=== PATIENT | male | born 1990 | race Caucasian/White ===

== ENCOUNTER 2024-06-03 06:25 | Day surgery (SDC) | payer OTHER, SELFPAY ==
[2024-06-03] VITALS (7 sets, daily range): BP systolic 120–139; BP diastolic 70–82; PULSE 66–76; RESP 16–18; TEMP 36.2–36.6; O2SAT 92–100; BMI 38.1
--- NOTE | 2024-06-03 | IMM_PTH ---
PATIENT: AYAH VILLAGOMEZ LOC: EN U#:[id number] AGE/SX: 33/M ROOM: RE06/03/[address]: Dr. Sara Shabazz MD : 1990 BED: DIS: 06/03/2024 SPEC #: [id number] RECD: 06/03/24 11:53 STATUS: TWILA REQ #: [id number] AVEL: 06/03/24 00:[address]: Sara Shabazz DEPT: IMMUNOHISTOCHEMISTRY RECD BY: Bernabe Cowart ENTERED: 06/03/24 11:54 SP TYPE: IMMUNO OTHR DR: Erin Wilkins PA-C Tissues: A - Gastric mucous membrane Procedures: H Pylori (initial) PHYSICIAN & INSTITUTION [place] [address] SPECIMEN INFORMATION: Tissue Source: A- Prepylorus biopsy Clinical Info: Phlegm in throat Specimen Number: [id number] CPT code: 27181 METHODOLOGY: Deparaffinized sections of prefer/formalin-fixed tissue or PAP/DQ stained slides are incubated with monoclonal/polyclonal antibodies/oligonucleotide probes. Localization is made via biotin free immunoperoxidase method. Appropriate controls are performed and reacted as expected. Results on target cell population are indicated in the following table: RESULTS: ANTIBODY / CLONE RESULT Block A H Pylori (polyclonal) negative These tests were developed and their performance characteristics determined by [facility]. They may not have been cleared or approved by the U.S. Food and Drug Administration. The FDA has determined that such clearance or approval is not necessary. The above immunohistochemical/dualISH markers are ordered and reviewed by the Pathologist. INTERPRETATION: A. Prepylorus biopsy: Negative for Helicobacter pylori organisms. AM 06/04/2024
--- NOTE | 2024-06-03 07:00 | PRE.ANES_ITS ---
ASA Classification* ASA Classification ASA Classification: 3 Assessment & Plan Anesthesia* Anesthesia Assessment Anesthesia Assessment: Discussed sedation and/or anesthesia options, risks, benefits, and alternatives with patient/parents/legal guardian/POA. Questions invited. The patient/parents/legal guardian/POA seems to understand and agrees to proceed with anesthesia plan. Reviewed the physical assessment, medical history, allergy history and patient home medications list prior to surgery/procedure/anesthetic and documented any changes. Performed airway and anesthesia risk assessments. Anesthesia Type Anesthesia Type: MAC Anesthesia Focused Assessment* Temperature: 97.2 F Pulse Rate: 73 Blood Pressure: 139/77 Respiratory Rate: 18 Pulse Ox: 100 Airway Assessment Mouth opens: >3 cm Mallampati Score: II Focused Labs Anesthesia Preop lab: CBC CHEMISTRY COAG Pre-Assessment Diagnosis/Proposed Procedure Planned Operative Procedure(s): egd Anesthesia History Anesthesia History - informatics scientist: Anesthesia History - informatics scientist Hx Hospitalization No 05/28/24 08:20 Any Problems With Anesthesia No 05/28/24 08:20 Cholinesterase deficiency No 05/28/24 08:20 You/Your Family Experience No 05/28/24 08:20 fever (hyperthermia) with Relationship Recent Exposure to Contagious No 06/03/24 06:47 Disease Does patient have nerve No 05/28/24 08:20 stimulator Patient instructed to have device shut off --Does patient have Pacemaker No 06/03/24 06:47 or ICD? When Was Last Pacemaker Check QUESTION #4 FULL TEXT: You/Your Family Experience fever (hyperthermia) with Anesthesia Last Oral Intake Last Oral intake: Last Oral Intake NPO since 00:00 06/03/24 06:47 Meds taken in AM with sips of No 06/03/24 06:47 water? Meds patient instructed to take am of surgery PONV PONV - informatics scientist: PONV - informatics scientist Female No 05/28/24 08:20 HX of Motion Sickness No 05/28/24 08:20 HX of N/V After Surgery No 05/28/24 08:20 Non-Smoker Yes 05/28/24 08:20 Duration of Surgery greater No 05/28/24 08:20 than 60 minutes Number of Risk Factors 1 05/28/24 08:20 PONV Score Low Risk 05/28/24 08:20 Height & Weight Height & Weight: Anesthesia: Height & Weight Height 6 ft 3 in 06/03/24 06:47 Weight: 138.346 kg 06/03/24 06:47 Body Mass Index (BMI) 38.1 06/03/24 06:47 Respiratory Assessment Respiratory Assessment - informatics scientist: Respiratory Tract Infection Hx - informatics scientist Hx Respiratory Tract Infection No 05/28/24 08:20 STOP Sleep Apnea STOP Sleep Apnea - informatics scientist: STOP Sleep Apnea - informatics scientist Hx Hypertension No 05/28/24 08:20 Hx Sleep Apnea No 05/28/24 08:20 CPAP BIPAP Do you snore loudly (louder No 05/28/24 08:20 than talking or can be heard Do you often feel tired/ No 05/28/24 08:20 fatigued/ sleepy during daytime? Has anyone observed you stop No 05/28/24 08:20 breathing during sleep? STOP Results Negative 05/28/24 08:20 QUESTION #5 FULL TEXT : Do you snore loudly (louder than talking or can be heard through closed doors)? Tobacco Use History Tobacco Use History - informatics scientist: Tobacco Use History - informatics scientist Tobacco Use Smoking Status Never smoker 05/28/24 08:20 Hx Tobacco Use No 05/28/24 08:20 Years Smoking Packs Smoked per Day Smoking Cessation Date was within the last 15 years Hx Smoking Cessation Date Hx Smoking Cessation Counseling Hematologic Medial History Hematologic Hx - informatics scientist: Hematologic Medical Hx - engineering leader Hx of Blood Transfusion No 05/28/24 08:20 Hx of Transfusion in last 3 No 05/28/24 08:20 Months Date of Last Transfusion (if within last 3 months) Ever experience any problems No 05/28/24 08:20 with transfusion(s)? Specify any problems Hx of Preganancy in last 3 N/A 05/28/24 08:20 Months Nurse Filling Out Transfusion NBUCHER 05/28/24 08:20 & Questions: Date: 05/28/24 05/28/24 08:20 Time: 08:22 05/28/24 08:20 Patient unable to answer at this time (ie. confused, unrespo /Reproduction History /Reproductive History - informatics scientist: /Reproductive Hx- informatics scientist Hx Now No 05/28/24 08:20 Gestational Age (in weeks): EDC: Hx Hx Para Hx Section SAB No 05/28/24 08:20 [facility] Medical History PTSD (post-traumatic stress disorder) Anxiety Gastric reflux Non-smoker History of stress test Insomnia Obesity Depression HTN (hypertension) Home Medications ?Medication ?Instructions ?Recorded ?Last Taken ?Type ascorbic acid (vitamin C) 500 mg 500 mg PO DAILY 11/29/23 06/02/24 History capsule bupropion HCl 100 mg tablet 100 mg PO BID 11/29/23 06/02/24 History cholecalciferol (vitamin D3) 50 50 mcg PO DAILY 11/29/23 06/02/24 History mcg (2,000 unit) capsule escitalopram oxalate 5 mg tablet 5 mg PO DAILY 11/29/23 06/02/24 History loratadine 10 mg tablet 10 mg PO DAILY 11/29/23 06/02/24 History magnesium oxide 400 mg PO DAILY 11/29/23 Unknown History mecobalamin (vitamin B12) 5,000 5,000 mcg PO DAILY 11/29/23 06/02/24 History mcg chewable tablet melatonin 5 mg capsule 30 mg PO DAILY 11/29/23 06/02/24 History multivitamin 1 tab PO DAILY 11/29/23 06/02/24 History phentermine 37.5 mg tablet 37.5 mg PO DAILY 11/29/23 05/27/24 History tizanidine 4 mg capsule 4 mg PO QHS PRN muscle spasticity 11/29/23 Unknown History zinc gluconate 50 mg tablet 50 mg PO DAILY 11/29/23 06/02/24 History diethylpropion 25 mg tablet 25 mg PO QPM 05/28/24 06/02/24 History famotidine 40 mg tablet 40 mg PO QHS 05/28/24 06/02/24 History omeprazole 40 mg capsule,delayed 40 mg PO BID 05/28/24 06/02/24 History release trazodone 100 mg tablet 100 mg PO QHS 05/28/24 06/02/24 History Allergy/AdvReac Type Severity Reaction Status Date / Time No Known Allergies Allergy Verified 05/28/24 08:14 Family History Father CAD (coronary artery disease) Hypertension Brother Asthma Hypertension Grandfather Cancer Grandmother Diabetes Cancer Surgical History S/P myringotomy with insertion of tube S/P tonsillectomy and adenoidectomy Social History Smoking Status: Never smoker alcohol intake: current Review of Systems (Anesthesia) ROS Narrative System reviewed and no additional complaints, except as documented.
--- NOTE | 2024-06-03 07:13 | H&P.OPEN ---
HPI - General General Date of Service: 06/03/24 HPI Narrative AYAH VILLAGOMEZ, is a 33 M who presents for an EGD to due to coughing up phlegm for about a year. Patient did go back and see ENT and they did not find anything when they did a CAT scan. Did recommend allergy testing however patient has had allergy testing previously. Patient does take generic Claritin daily was on Flonase for short bit did not think that really helped. ENT also put him on 40 mg in the morning of omeprazole and then Pepcid 40 mg at night he has been on that for about 2 months denies any changes. Still states increased coughing especially in the morning. Patient denies any abdominal pain or obvious reflux symptoms. office visit 11/29/23 [facility] HPI: 33-year-old male presents due to coughing up phlegm for nearly about a year presents for a possible EGD. 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 Patient does admit that in the last month he feels like he has more facial/sinus pressure in the morning. That does get better throughout the day. Patient states in the morning mostly he will be coughing up quite a bit of green/yellow phlegm. Patient denies any abdominal pain he states he was tried on omeprazole 40 mg p.o. daily for 2 months denies any change states he was also placed on Spiriva by his PCP for 1 month denies any change. Patient denies any chronic nausea or vomiting. Patient states he will occasionally has burning up his esophagus maybe once a month or last he takes Tums to resolve that. Patient does have a history of allergy shots in the past. Patient did try taking some Claritin which she used to take denies any changes with that. [facility] Medical History PTSD (post-traumatic stress disorder) Anxiety Gastric reflux Non-smoker History of stress test Insomnia Obesity Depression HTN (hypertension) Home Medications ?Medication ?Instructions ?Recorded ?Last Taken ?Type ascorbic acid (vitamin C) 500 mg 500 mg PO DAILY 11/29/23 06/02/24 History capsule bupropion HCl 100 mg tablet 100 mg PO BID 11/29/23 06/02/24 History cholecalciferol (vitamin D3) 50 50 mcg PO DAILY 11/29/23 06/02/24 History mcg (2,000 unit) capsule escitalopram oxalate 5 mg tablet 5 mg PO DAILY 11/29/23 06/02/24 History loratadine 10 mg tablet 10 mg PO DAILY 11/29/23 06/02/24 History magnesium oxide 400 mg PO DAILY 11/29/23 Unknown History mecobalamin (vitamin B12) 5,000 5,000 mcg PO DAILY 11/29/23 06/02/24 History mcg chewable tablet melatonin 5 mg capsule 30 mg PO DAILY 11/29/23 06/02/24 History multivitamin 1 tab PO DAILY 11/29/23 06/02/24 History phentermine 37.5 mg tablet 37.5 mg PO DAILY 11/29/23 05/27/24 History tizanidine 4 mg capsule 4 mg PO QHS PRN muscle spasticity 11/29/23 Unknown History zinc gluconate 50 mg tablet 50 mg PO DAILY 11/29/23 06/02/24 History diethylpropion 25 mg tablet 25 mg PO QPM 05/28/24 06/02/24 History famotidine 40 mg tablet 40 mg PO QHS 05/28/24 06/02/24 History omeprazole 40 mg capsule,delayed 40 mg PO BID 05/28/24 06/02/24 History release trazodone 100 mg tablet 100 mg PO QHS 05/28/24 06/02/24 History Allergy/AdvReac Type Severity Reaction Status Date / Time No Known Allergies Allergy Verified 05/28/24 08:14 Family History Father CAD (coronary artery disease) Hypertension Brother Asthma Hypertension Grandfather Cancer Grandmother Diabetes Cancer Surgical History S/P myringotomy with insertion of tube S/P tonsillectomy and adenoidectomy Social History Smoking Status: Never smoker alcohol intake: current Past Medical/Surgical History Planned Operation Planned Operative Procedure(s): egd Previous Hospitalizations/Surgeries HX Hospitalizations: No Any Problems With Anesthesia: No You/Your Family Experience Fever (Hyperthermia) With Anes: No Cholinesterase deficiency: No Cardiovascular Hx Hypertension: No Respiratory Hx Sleep Apnea: No Hx Respiratory Tract Infection/Cold (presently): No Do You Snore Loudly (louder than talking or can be heard): No Do You Often Feel Tired/ Fatigued/ Sleepy Dring Daytime?: No Has Anyone Observed You Stop Breathing During Sleep?: No Result (for STOP score): Negative Smoking Status: Never smoker Neurological Does patient have nerve stimulator: No Reproduction : No Miscellaneous Recent Exposure to Contagious Disease: No Allergies No Known Allergies Allergy (Verified 05/28/24 08:14) Discharge Is Pt Admitted From a Correction, or a Fdc: No After D/C, Where Do you Plan to Go: Return Home Vital Signs Vital Signs Vital Signs: 06/03/24 06:47 06/03/24 06:47 06/03/24 07:00 Temperature 97.2 F L 97.2 F L Temperature Source Oral Pulse Rate 73 73 Respiratory Rate 18 18 Respiratory Pattern Normal Blood Pressure 139/77 H 139/77 H Blood Pressure Mean 97 Blood Pressure Source Monitor Blood Pressure Position Semi-Fowlers Blood Pressure Location Right Arm Pulse Ox 100 100 Oxygen Delivery Method Room Air Weight Weight: 305 lb Body Mass Index (BMI) 38.1 Physical Exam Const alert, oriented x3 and no apparent distress HEENT normocephalic and head/scalp atraumatic Resp normal respiratory effort Cardio regular rate GI soft to palpation and non-tender; Negative for non-distended Palpation: Negative for guarding Extremity no clubbing, cyanosis or edema Skin no rashes or lesions noted Neuro CN's II-XII intact bilaterally Psych mental status grossly normal Assessment & Plan Assessment/Plan (1) Phlegm in throat: (2) Cough present for greater than 3 weeks: PLAN: Plan Workup so far with ENT have been negative did recommend allergy testing with patient states he had previously which was negative as well. Surgery Risks - Colonoscopy I discussed with the patient the risks of the procedure: Yes Risks Include but are not Limited To: Plan for an EGD Risks include but are not limited to: Bleeding, perforation requiring further surgery.
--- NOTE | 2024-06-03 07:30 | EGD_PTH ---
PATIENT: AYAH VILLAGOMEZ LOC: EN U#:[id number] AGE/SX: 33/M ROOM: RE06/03/[address]: Dr. Sara Shabazz MD : 1990 BED: DIS: 06/03/2024 SPEC #: [id number] RECD: 06/03/24 11:08 STATUS: TWILA ALEJANDRO #: [id number] AVEL: 06/03/24 07:[address]: Sara Shabazz DEPT: SURGICAL PATHOLOGY RECD BY: Juan Antonio Alegre ENTERED: 06/03/24 11:45 SP TYPE: EGD BIOPSY OT DR: Erin Wilkins PA-C Tissues: A - Gastric mucous membrane B - Esophagus, NOS Procedures: Surgery Specimen Level IV HEADER OPERATION: EGD with biopsy PRE-OP DIAGNOSIS: Phlegm in throat TISSUE SUBMITTED: A- Prepylorus biopsy, B- Random esophagus biopsy MICROSCOPIC DIAGNOSIS A. Prepyloric region, biopsy: Chronic gastritis with focal active gastritis. See comment. B. Esophagus, random biopsy: Fragments of benign squamous mucosa. No evidence of inflammation. AM. 06/04/2024 COMMENT A. The results of immunohistochemistry for Helicobacter pylori will be reported separately ([id number]). MICROSCOPIC DESCRIPTION Slides are reviewed. GROSS DESCRIPTION A. Received in fixative is one container labeled with the patient's name and designated Prepylorus biopsy. The specimen consists of one irregular fragment of light weeks soft tissue that measures 0.2 x 0.2 x 0.1 cm. The specimen is totally submitted in one cassette. B. Received in fixative is one container labeled with the patient's name and designated Random esophagus biopsy. The specimen consists of one irregular fragment of light weeks soft tissue that measures 0.3 x 0.2 x 0.1 cm. The specimen is totally submitted in one cassette. 06/03/2024 TC:2 CPT:14059u8
--- NOTE | 2024-06-03 07:43 | OP.CCLET_ITS ---
06/03/2024 Erin Wilkins Pa-c Re : Upper GI endoscopy procedure for Wero Wilkins This procedure was performed on Monday, June 03, 2024. My impressions and recommendations are as follows: Impressions : - Z-line regular, 42 cm from the incisors. - Erosive gastropathy with no stigmata of recent bleeding. Biopsied. - Normal examined duodenum. - Biopsies were taken with a cold forceps for histology in the middle third of the esophagus. Recommendations : - Await pathology results. - Discharge patient to home. - Resume previous diet. - Use sucralfate tablets 1 gram PO QID for 1 month. - Continue present medications. My findings are described in the full procedure note, which is enclosed. If I can be of further assistance, please feel free to contact me at Doctor phone number(s): , Work: . Sincerely, MD Sara Robertson MD 06/03/2024 7:42:14 AM This report has been signed electronically.
--- NOTE | 2024-06-03 07:43 | OP.EGD_ITS ---
Patient Name: Wero Browning Procedure Date: 06/03/2024 7:23 AM Date of : 1990 Age: 33 Procedure: Upper GI endoscopy Indications: Chronic cough Providers: Sara Shabazz MD Medicines: Monitored Anesthesia Care Patient Profile: This is a 33 year old male. Complications: No immediate complications. Procedure: Pre-Anesthesia Assessment: - Prior to the procedure, a History and Physical was performed, and patient medications and allergies were reviewed. The patient's tolerance of previous anesthesia was also reviewed. The risks and benefits of the procedure and the sedation options and risks were discussed with the patient. All questions were answered, and informed consent was obtained. Prior Anticoagulants: The patient has taken no anticoagulant or antiplatelet agents. ASA Grade Assessment: Per anesthesia. After reviewing the risks and benefits, the patient was deemed in satisfactory condition to undergo the procedure. After obtaining informed consent, the endoscope was passed under direct vision. Throughout the procedure, the patient's blood pressure, pulse, and oxygen saturations were monitored continuously. The gastroscope was introduced through the mouth, and advanced to the second part of duodenum. The upper GI endoscopy was accomplished without difficulty. The patient tolerated the procedure well. Scope In: 7:32:00 AM Scope Out: 7:36:24 AM Total Procedure Duration Time 0 hours 4 minutes 24 seconds Findings: The Z-line was regular and was found 42 cm from the incisors. Biopsies were taken with a cold forceps in the middle third of the esophagus for histology. A few localized less than 5 mm erosions with no stigmata of recent bleeding were found in the prepyloric region of the stomach. Biopsies were taken with a cold forceps for histology. Biopsies were taken with a cold forceps for Helicobacter pylori cultures. The cardia and gastric fundus were normal on retroflexion. The examined duodenum was normal. Impression: - Z-line regular, 42 cm from the incisors. - Erosive gastropathy with no stigmata of recent bleeding. Biopsied. - Normal examined duodenum. - Biopsies were taken with a cold forceps for histology in the middle third of the esophagus. Recommendation: - Await pathology results. - Discharge patient to home. - Resume previous diet. - Use sucralfate tablets 1 gram PO QID for 1 month. - Continue present medications. Procedure Code(s): --- Professional --- 38330, PT, Esophagogastroduodenoscopy, flexible, transoral; with biopsy, single or multiple Diagnosis Code(s): --- Professional --- K31.89, Other diseases of stomach and duodenum R05.3, Chronic cough CPT copyright 2021 [employer]. All rights reserved. The codes documented in this report are preliminary and upon measurement operator review may be revised to meet current compliance requirements. MD Sara Robertson MD 06/03/2024 7:42:14 AM This report has been signed electronically. Number of Addenda: 0 Note Initiated On: 06/03/2024 7:23 AM
--- NOTE | 2024-06-03 07:44 | PCM.POST.ANE ---
Anesthesia: Postop Eval I Current Vital Signs Temperature: 97.7 F Pulse Rate: 67 Blood Pressure: 121/71 Respiratory Rate: 16 Pulse Ox: 93 Oxygen Delivery Method: Room Air Assessment Airway patent: Yes Spontaneous unlabored respirations: Yes Mental status: Asleep nausea: No Vomiting: No Anesthesia Complication: No Fluid Hydration Crystalloid volume administer (ml): 15 Total IV fluid infused: 15 Progress Note Anesthesia document: Postop Eval 1 completed: Yes
--- NOTE | 2024-06-03 11:47 | PCM.POSTANE2 ---
Anesthesia Postop Eval I Sum Postop Eval Completion status Anesthesia document: Postop Eval 1 completed: Yes Anesthesia Postop Eval I Summary Anesthesia Postop Eval I Summary: Anesthesia Postop Eval I: Assessment Summary Airway patent Yes 06/03/24 07:45 [email or web address] Spontaneous unlabored Yes 06/03/24 07:45 [email or web address] respirations Mental status Asleep 06/03/24 07:45 [email or web address] nausea No 06/03/24 07:45 [email or web address] Vomiting No 06/03/24 07:45 [email or web address] Anesthesia Postop Eval I: Fluid Summary Crystalloid volume administer 15 06/03/24 07:45 [email or web address] (ml) Colloids volume administered ( ml) Blood Product volume administered (ml) Total IV fluid infused 15 06/03/24 07:45 [email or web address] Anesthesia Postop Eval I: Summary Notes Anesthesia Complication No 06/03/24 07:45 [email or web address] Anesthesia Complication Comment: Post-operative progress note Anesthesia: Postop Eval II Evaluation Mental status: Awake Pain Level: 0 nausea: No Vomiting: No
== END 2024-06-03 08:25 | disposition home or self-care (01) ==
LOC: EN 06:29 → AC 06:47
PROVIDERS: PCP Physician Assistant; Referring Provider Physician Assistant; Visit Provider Surgery
PROC: 0DJ08ZZ Inspection of Upper Intestinal Tract, Via Natural or Artificial Opening Endoscopic (ICD-10-PCS; CPT 43235; principal; 2024-06-03 07:25)
DX: R05.3 Chronic cough (principal); I10 Essential (primary) hypertension; G47.00 Insomnia, unspecified; K21.9 Gastro-esophageal reflux disease without esophagitis; K31.89 Other diseases of stomach and duodenum
CPT/HCPCS: 43239; 88305; 88342; J7120; A4216; J2405